=== PATIENT | female | born 1945 | race Caucasian/White ===

== ENCOUNTER 2023-08-15 12:01 | Observation (INO) | payer MEDICARE, OTHER ==
[~2023-08-15] VITALS: Ht 172.7 cm; Wt 99.8 kg
[2023-08-15 12:21] LABS: BASOPHILS ABSOLUTE AUTO 0.09 K/mm3 (0.00-0.23); BASOPHILS PERCENT AUTO 2 % (0-2); EOSINOPHILS ABSOLUTE AUTO 0.27 K/mm3 (0.00-0.68); EOSINOPHILS PERCENT AUTO 5 % (0-6); Hematocrit 46.5 % (33.0-51.0); Hemoglobin 15.5 g/dL (11.5-16.0); IMMATURE GRAN ABSOLUTE AUTO 0.01 K/mm3 (0.00-0.10); IMMATURE GRAN PERCENT AUTO 0 % (0-1); LYMPHOCYTES PERCENT AUTO 20 % (21-46); MONOCYTES ABSOLUTE AUTO 0.57 K/mm3 (0.16-1.47); MONOCYTES PERCENT AUTO 10 % (4-13); Mean Corpuscular HGB 29.5 pg (26.0-34.0); Mean Corpuscular HGB Conc 33.3 g/dL (31.5-36.5); Mean Corpuscular Volume 88 fL (80-100); Mean Platelet Volume 9.1 fL (9.1-12.4); NEUTROPHILS ABSOLUTE AUTO 3.77 K/mm3 (1.96-9.15); NEUTROPHILS PERCENT AUTO 64 % (41-73); Platelet Count 234 K/mm3 (150-400); RDW Standard Deviation 42.2 fL (35.1-46.3); Red Blood Cell Count 5.26 M/mm3 (3.80-5.20); White Blood Cell Count 5.91 K/mm3 (4.00-11.30)
[2023-08-15] MEDS ORDERED: EUTHYROX125 MCG PO (12:42)
[2023-08-15 12:43] LABS: Bilirubin, Total 0.7 mg/dL (0.1-1.0); Bun/Creatinine Ratio 21.1 (12.0-20.0); Calcium, Blood 9.9 mg/dL (8.5-10.1); Creatinine, Blood 0.76 mg/dL (0.40-1.00); Potassium, Blood 4.1 mmol/L (3.5-5.5)
[2023-08-15] MEDS ORDERED: PYRI60 PO (12:45)
[2023-08-15] MEDS ORDERED: Clopidogrel Bisulfate 75 MG Tab PO ONE (12:50)
[2023-08-15] MEDS ORDERED: Aspirin 325 MG Tab PO ONE (13:05)
[2023-08-15] MEDS ORDERED: Acetaminophen 325 MG TABLET PO PRN (13:50)
[2023-08-15] MEDS ORDERED: Ondansetron HCl 2 MG / ML 2ML Vial IV PRN (13:50)
[2023-08-15 16:27] VITALS: BP 163/81
--- NOTE | 2023-08-15 16:45 | NUR ---
pt arrived from ED to room 363 via wheelchair, she is a/ox4, pleasant and cooperative with care, follows commands well, denies any pain, states left side of her face was numb but no changes in movement, no problem swallowing, right eyeglass frame truer is slightly weaker, she states is improved, states right leg is always weaker from knee surg, can stand and transfer to bed indep. lungs are clear t/o, resp even and unlabored, no cough noted, hrr, no edema noted, ppp+2, cap refill <3sec, vs stable, afebrile, piv site is clear and patent, btx4, abd flat soft nontender, voids without diff, skin c/w/d, maew, just slightly weaker on right, singh, oriented to room layout and call system, call light in reach.
--- NOTE | 2023-08-15 18:44 | NUR ---
pt doing ok, no further changes, will notify staff if any changes in condition. call light in reach.
[2023-08-15] MEDS ORDERED: Pyridostigmine Bromide 60 MG Tab PO SCH (19:00)
[2023-08-15 20:18] VITALS: BP 139/58
[2023-08-15] MEDS ORDERED: Atorvastatin 40 MG Tab PO SCH (21:00)
[2023-08-16] MEDS ORDERED: Pyridostigmine Bromide 60 MG Tab PO SCH ×2 (06:00→09:00)
[2023-08-16] MEDS ORDERED: Levothyroxine Sodium 0.125 MG Tab PO SCH (06:00)
--- NOTE | 2023-08-16 06:41 | NUR ---
SHIFT SUMMARY PT PLEASANT AND COOPERATIVE. MESTONIN MEDICATION CHANGED FROM 20MG TID TO 30MG TID. PT STS SHE TAKES IT THAT WAY AND DR. BRISENO AGREED TO THE CHANGE. PT SLEPT OFF AND ON THROUGHOUT THE SHIFT. BED IN LOW POSITION AND PT HAS CALL LIGHT WITHIN HER REACH. WILL CONTINUE TO MONITOR.
[2023-08-16 06:43] LABS: Hematocrit 44.2 % (33.0-51.0); Hemoglobin 14.9 g/dL (11.5-16.0); Mean Corpuscular HGB 29.2 pg (26.0-34.0); Mean Corpuscular HGB Conc 33.7 g/dL (31.5-36.5); Mean Corpuscular Volume 87 fL (80-100); Platelet Count 219 K/mm3 (150-400); RDW Standard Deviation 41.1 fL (35.1-46.3); White Blood Cell Count 4.81 K/mm3 (4.00-11.30)
[2023-08-16 07:04] LABS: Anion Gap 8 mmol/L (3-11); Blood Urea Nitrogen 13 mg/dL (8-24); Bun/Creatinine Ratio 19.4 (12.0-20.0); CHOL/HDL RATIO 4.1; CO2, Blood 26 mmol/L (21-32); Calcium, Blood 9.3 mg/dL (8.5-10.1); Chloride, Blood 109 mmol/L (98-108); Cholesterol 189 mg/dL (50-200); Creatinine, Blood 0.67 mg/dL (0.40-1.00); Glomerular Filtration Rate 90 (60-); Glucose, Blood 124 mg/dL (70-99); HDL Cholesterol 46 mg/dL (>39); LDL/HDL RATIO 2.7; Low Density Lipoprotein Chol 122 mg/dL (0-110); Potassium, Blood 3.9 mmol/L (3.5-5.5); Sodium, Blood 139 mmol/L (136-145); Triglycerides 103 mg/dL (30-160); Very Low Density Lipoprot Chol 20 mg/dL (6-32)
[2023-08-16 07:58] VITALS: BP 134/73
[2023-08-16] MEDS ORDERED: Aspirin 81 MG Chew PO SCH (09:00)
[2023-08-16] MEDS ORDERED: Clopidogrel Bisulfate 75 MG Tab PO SCH (09:00)
[2023-08-16] MEDS ORDERED: Enoxaparin 40 MG/0.4 ML SYR SC SCH (09:00)
[2023-08-16] MEDS ORDERED: CLOP75 PO (11:50)
[2023-08-16] MEDS ORDERED: Aspir 8181 MG PO (11:50)
[2023-08-16] MEDS ORDERED: EZET10 PO (11:51)
[2023-08-16] MEDS ORDERED: Crestor40 MG PO (11:51)
--- NOTE | 2023-08-16 13:48 | NUR ---
SHIFT/DISCHARGE SUMMARY: PATIENT A/OX4, CALM, PLEASANT AND COOPERATIVE c CARE. PATIENT DENIES CP/PRESSURE, SOB, N/V AND DIZZINESS. PATIENT REPORTS NUMBNESS AND TINGLING TO L SIDE FACE AND ARMS HAS RESSOLVED. PATIENT SENSATIONS AND STRENGTH TO ALL EXTRIMITIES ARE EQUAL c NO DEFICIT NOTED. PATIENT ON TELE, SR HR IN THE HIGH 60'S BPM. PATIENT IS EATING AND DRINKING WELL WITHOUT ANY S/S OF DIFFICULTY SWALLOWING. PATIENT CONTINENCE OF BLADDER, AMBULATES TO BATHROOM/BACK IN BED INDEPENDENTLY. PATIENT REQUEST THIS AM THAT SHE WOULD LIKE TO GO HOME TODAY. DR. JACOBS NOTIFIED c PATIENT REQUEST DURING AM ROUNDING. VITAL SIGNS REVIEWED. PATIENT HAS NO COMPLAINTS OR DENIES NEW CONCERNED THIS SHIFT. PIV TO [facility]. PATIENT DISCHARGE HOME. DISCHARGE INSTRUCTIONS PACKET GIVEN TO PATIENT. EDUCATE PATIENT REGARDING ADMITTING DX'S OF CVA, S/S, TX, NEW PRESCRIBED RX AND TO F/U c PCP. PATIENT VERBALIZED UNDERSTANDING AND NO FURTHER QUESTIONS. RX WAS FAXED TO PATIENT PREFERRED [facility] ALL PATIENT PERSONAL BELONGINGS WERE SENT HOME c THE PATIENT. PATIENT LEFT THE ROOM AT 1348 AND WAS TRANSPORTED VIA WHEELCHAIR BY SURGERY SCHEDULER STAFF TIEN TO PATIENT ENTRANCE.
== END 2023-08-16 13:49 | disposition home or self-care (01) ==
LOC: ER 12:01 → MEDS 13:48 → ENPENDDIS 08-16 11:00 → MEDS 08-16 13:49
PROVIDERS: Student in an Organized Health Care Education/Training Program; ADMIT Internal Medicine
DX: R20.0 Anesthesia of skin (principal); I10 Essential (primary) hypertension; E03.9 Hypothyroidism, unspecified; G47.00 Insomnia, unspecified; E78.5 Hyperlipidemia, unspecified; Z96.653 Presence of artificial knee joint, bilateral; Z88.8 Allergy status to other drugs, medicaments and biological substances; Z88.2 Allergy status to sulfonamides; Z88.1 Allergy status to other antibiotic agents; Z88.5 Allergy status to narcotic agent; Z79.890 Hormone replacement therapy; Z79.899 Other long term (current) drug therapy; Z66 Do not resuscitate
CPT/HCPCS: 36415; 70450; 70496; 70498; 70551; 80048; 80053; 80061; 84484; 85025; 85027; 92610; 93005; 93010; 93306; 96372; 97161; 99285-25; A9270; G0378; J1650; Q9967